=== PATIENT | female | born 1995 | race Caucasian/White ===

== ENCOUNTER 2022-08-02 08:56 | Emergency (ER) | payer OTHER ==
--- OUTSIDE RECORDS SUMMARY | 2022-08-02 09:02 | XMS REPORT | Continuity of Care Document ---
:1995 Author Organization [facility] t Address [address] [place] [address] Care Team Providers Name Role Phone PCP, PATIENT DOES NOT HAVE A Primary Care Physician Unavaila ble NAVEEN CHEEK Attending Clinician Unavailable Naveen Olivarez Attending Clinician Unknown, Attending Attending Clinician Unavailable Payers Payer Name Policy Type Policy Number Effective Date Expiration Date Jana SMITH [id number] 2022 00:00:00 Problems This patient has no known problems. Allergies, Adverse Reactions, Alerts Allergy Allergy Status Severity Reaction(s) Onset Inactive Treating Comm ents Source Name Type Date Date Clinician LATEX DRUG Active Hives 2019-06 [facility] INGREDI 0-01 ity of 00:00: [place] 00 Medical Branch Latex Propensi Active Hives 2019-06 Univers ty to 0-01 ity of adverse 00:00: [place] reaction 00 Medical s Branch Sulfa Propensi Active Itching Uticaria Unive rs (Sulfona ty to 7-24 ity of mide adverse 00:00: [place] Antibiot reaction 00 Medica l ics) s Branch SULFA Drug Active ITCHING Univers (SULFONA Class 7-24 ity of MIDE 00:00: [place] ANTIBIOT 00 Medical ICS) Branch NO KNOWN Drug Active Univers ALLERGIE Class [facility] of [facility] [place] [facility] Social History Social Habit Start Date Stop Date Quantity Comments Source Sex Assigned At [birth year] [facility] [place] [facility]00:00 Medical Branch Smoking Status Start Date Stop Date Source Tobacco smoking consumption [facility] [place] [facility] unknown Branch Medications Ordered Filled Start Stop Current Ordering Indication Dosage Frequency Signature Comments Components Source Medication Medication Date Date Medication? Clinician (SIG) Name Name clindamycin 2022- Yes [id number] 300mg Take 1 Univers 300 mg 08-01 capsule by ity of capsule 00:00: 05:59 mouth 4 [place] 00 :00 (four) Medical times [place] daily for 7 days. Vital Signs Vital Name Observation Time Observation Value Comments Source Systolic blood 2022-08-01 17:04:00 122 mm[Hg] [facility] Diastolic blood 2022-08-01 17:04:00 82 mm[Hg] Unive [facility] Heart rate 2022-08-01 17:04:00 108 /min [facility] Body temperature 2022-08-01 17:04:00 37.33 [facility] Respiratory rate 2022-08-01 17:04:00 17 /min [facility] Body height 2022-08-01 17:04:00 162.6 cm [facility] Body weight 2022-08-01 17:04:00 69.4 kg [facility] BMI 2022-08-01 17:04:00 26.26 kg/m2 [facility] Oxygen saturation in 2022-08-01 17:04:00 96 /min [facility] Arterial blood by [facility] Pulse oximetry Branch Procedures This patient has no known procedures. Encounters Start End Encounter Admission Attending Care Care Encounter Source Date/Time Date/Time Type Type Clinicians Facility Department ID 2022-08-01 2022-08-01 Outpatient R [facility] [id number] [facility] 11:00:00 11:26:10 [facility]Y ity [facility] 2022-08-01 2022-08-01 Urgent Naveen Cheek [facility] [id number] [facility] 11:00:00 11:26:10 Care Unknown, Attending HEALTH [id number] ity of [place] [id number] Shaji as NASRIN?BLEA [phone] [place] [address] MEDICAL OFFICE BUILDING Results This patient has no known results.
[2022-08-02] MEDS ORDERED: LIDOCAINE 1% MPF 5 ML VIAL ONE (12:09)
[2022-08-02] MEDS ORDERED: CEPHALEXIN 250 MG CAP ONE (12:09)
--- NOTE | 2022-08-02 12:56 | ER ---
Nurse's Notes [facility] Name: Pricila Mortensen Age: 26 yrs Sex: Female : 1995 Arrival Date: 08/02/2022 Time: 09:01 Bed 10 Private MD: Diagnosis: Pilonidal cyst with abscess Presentation: 08/02 09:28 Chief complaint: Patient states: Pilonidal cyst x 3 years, 3-4 days with pain. jl7 Coronavirus screen: At this time, the client does not indicate any symptoms associated with coronavirus-19. Ebola Screen: No symptoms or risks identified at this time. 09:28 Method Of Arrival: Ambulatory jl7 09:42 Risk Assessment: Do you want to hurt yourself or someone else? Patient reports no jl7 desire to harm self or others. Onset of symptoms was July 30, 2022. 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 - Social history:: Smoking status: Reported history of juuling and/or vaping. Vital Signs: 09:42 Weight 69.4 kg; Height 5 ft. 4 in. (162.56 cm); jl7 11:17 BP 126 / 82; Pulse 81; Resp 17; Temp 98.2; Pulse Ox 100% ; jl7 09:42 Body Mass Index 26.26 (69.40 kg, 162.56 cm) jl7 ED Course: 09:01 Patient arrived in ED. rg4 09:06 Johana Bowers FNP-C is PHCP. kb 09:06 Alan Buck MD is Attending Physician. kb 09:43 Triage completed. jl7 09:43 Arm band placed on right wrist. jl7 11:17 Eliazar Helton RN is Primary Nurse. jl7 13:17 No provider procedures requiring assistance completed. Patient did not have IV access ss during this emergency room visit. Administered Medications: 12:00 Drug: KeFLEX (cephalexin) 500 mg Route: PO; jl7 13:08 Follow up: Response: No adverse reaction jl7 12:30 Drug: Lidocaine (1 %) 1 vials {Note: administered by NP. Johana} Volume: 5 ml; Route: jl7 Infiltration; 13:08 Follow up: Response: No adverse reaction jl7 Outcome: 12:55 Discharge ordered by . kb 13:17 Discharged to home ambulatory. ss 13:17 Condition: good 13:17 Discharge instructions given to patient, family, Instructed on discharge instructions, follow up and referral plans. medication usage, Demonstrated understanding of instructions, follow-up care, medications, Prescriptions given X 1. 13:18 Patient left the ED. ss Signatures: Johana Bowers, SKIVER HAND-C SKIVER HAND-Ckb Ani Parmar RN RN Anjali Hall rg4 Eliazar Helton RN RN jl7 Corrections: (The following items were deleted from the chart) 09:43 09:43 Allergies: No Known Allergies; jl7 jl7
--- NOTE | 2022-08-02 12:56 | EDPHYS ---
Physician Documentation [facility] Name: Pricila Mortensen Age: 26 yrs Sex: Female : 1995 Arrival Date: 08/02/2022 Time: 09:01 Bed 10 Private MD: ED Physician Alan Buck HPI: 08/02 09:13 This 26 yrs old Female presents to ER via Unassigned with complaints of Abscess. kb 09:13 The patient presents with an abscess of the gluteal cleft. Description: erythematous, kb swollen, warm. Onset: The symptoms/episode began/occurred 3 day(s) ago. Possible cause(s): unknown. Associated signs and symptoms: Pertinent positives: erythema, swelling. Modifying factors: the symptoms are alleviated by nothing, the symptoms are aggravated by movement, walking, pressure, sitting, squeezing the lesion and expressing the contents, touching. Severity of symptoms: At their worst the symptoms were moderate, in the emergency department the symptoms are unchanged. The patient has experienced similar episodes in the past, a few times, but today's symptoms are worse. The patient has not recently seen a physician. 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 - Social history:: Smoking status: Reported history of juuling and/or vaping. ROS: 09:12 Constitutional: Negative for fever, chills, and weight loss. kb 09:12 Skin: Positive for abscess, of the gluteal cleft. 09:12 All other systems are negative. Exam: 09:13 Constitutional: This is a well developed, well nourished patient who is awake, alert, kb and in no acute distress. Head/Face: Normocephalic, atraumatic. ENT: Moist Mucous membranes Cardiovascular: Regular rate and rhythm with a normal S1 and S2. No gallops, murmurs, or rubs. No pulse deficits. Respiratory: Respirations even and unlabored. No increased work of breathing. Talking in full sentences MS/ Extremity: Pulses equal, no cyanosis. Neurovascular intact. Full, normal range of motion. Neuro: Awake and alert, GCS 15, oriented to person, place, time, and situation. Moves all extremities. Normal gait. Psych: Awake, alert, with orientation to person, place and time. Behavior, mood, and affect are within normal limits. 12:51 Skin: abscess, that is moderate sized, of the gluteal cleft, with fluctuance, that is kb moderate. Vital Signs: 09:42 Weight 69.4 kg; Height 5 ft. 4 in. (162.56 cm); jl7 11:17 BP 126 / 82; Pulse 81; Resp 17; Temp 98.2; Pulse Ox 100% ; jl7 09:42 Body Mass Index 26.26 (69.40 kg, 162.56 cm) jl7 Procedures: 12:50 I \T\ D: Incision and drainage was performed for an abscess of the pilonidal cyst Prepped kb with Betadine, Anesthetized with 2 ml's 1% Lidocaine. Incised with #11 blade. Drained large amount purulent fluid. Packed with iodoform gauze, Dressing: sterile 4x4 gauze, the patient tolerated the procedure well. MDM: 09:11 Patient medically screened. kb 09:11 Differential diagnosis: abscess, cellulitis. Data reviewed: vital signs, nurses notes. kb ED course: Patient is a 26-year-old female who presents for a pilonidal cyst that became swollen and painful 3 days ago. On exam patient has pilonidal cyst with redness and fluctuance.. 12:50 Counseling: I had a detailed discussion with the patient and/or guardian regarding: the kb historical points, exam findings, and any diagnostic results supporting the discharge/admit diagnosis, the need for outpatient follow up, a family practitioner, a general surgeon, to return to the emergency department if symptoms worsen or persist or if there are any questions or concerns that arise at home. 12:51 ED course: Incision and drainage performed on pilonidal cyst. Large amount of purulent kb drainage expressed. Iodoform packing placed. Patient tolerated well. Patient educated follow-up with general surgery for further treatment. Educated on return precautions. Verbal understanding received.. 08/02 11:43 Order name: I\T\D Setup; Complete Time: 12:08 kb Administered Medications: 12:00 Drug: KeFLEX (cephalexin) 500 mg Route: PO; jl7 13:08 Follow up: Response: No adverse reaction 12:30 Drug: Lidocaine (1 %) 1 vials {Note: administered by NP. Johana} Volume: 5 ml; Route: jl7 Infiltration; 13:08 Follow up: Response: No adverse reaction jl7 Disposition Summary: 08/02/22 12:55 Discharge Ordered Location: Home kb Condition: Stable kb Diagnosis - Pilonidal cyst with abscess kb Followup: kb - With: Emergency Department - When: As needed - Reason: Worsening of condition Followup: kb - With: Private Physician - When: 2 - 3 days - Reason: Recheck today's complaints, Continuance of care, Re-evaluation by your physician Discharge Instructions: - Discharge Summary Sheet kb - Pilonidal Cyst Drainage, Care After kb - Incision and Drainage, Care After kb Forms: - Medication Reconciliation Form kb - Thank You Letter kb - Antibiotic Education kb - Prescription Opioid Use kb Prescriptions: - Cephalexin 500 mg Oral Capsule - take 1 capsule by ORAL route every 8 hours for 10 days; 30 capsule; Refills: 0, kb Product Selection Permitted Signatures: Johana Bowers, LINDA GUARDADOP-Juan Carlosb Eliazar Helton RN RN jl7 Corrections: (The following items were deleted from the chart) 09:43 09:43 Allergies: No Known Allergies; jl7 jl7 12:51 09:11 ED course: Patient is a 26-year-old female who presents for a pilonidal cyst that kb became swollen and painful 3 days ago.. kb
[2022-08-02 13:54] VITALS: BP 126/82; TEMP 98.2; O2SAT 100
== END 2022-08-02 13:18 | disposition home or self-care (01) ==
LOC: ER 08:56
PROC: 0H98XZZ Drainage of Buttock Skin, External Approach (ICD-10-PCS; principal; 2022-08-02)
DX: L05.01 Pilonidal cyst with abscess (principal); Z88.2 Allergy status to sulfonamides; Z91.040 Latex allergy status; Z91.048 Other nonmedicinal substance allergy status
CPT/HCPCS: 99283; 10080; J2001